=== PATIENT | male | born 1940 | race Two or more races ===

== ENCOUNTER 2025-07-30 08:01 | Emergency (ER) | payer OTHER ==
[~2025-07-30] VITALS: Ht 180.3 cm; Wt 66.2 kg
[~2025-07-30 08:01] MED LIST: AVAPRO150 MG PO; METFORMIN HCL1000 MG PO
[2025-07-30] MEDS ORDERED: JARDIANCE10 MG PO (08:19)
[2025-07-30] MEDS ORDERED: SYNTHROID88 MCG PO (08:20)
[2025-07-30] MEDS ORDERED: SYNTHROID75 MCG PO (08:20)
[2025-07-30] MEDS ORDERED: COZAAR50 MG PO (08:21)
[2025-07-30] MEDS ORDERED: NEOMYCIN/POLYMYXIN B/HYDROCORT 20 DR/ML BOTTLE OT STA (08:38)
[2025-07-30] MEDS ORDERED: KETOROLAC TROMETHAMINE 60 MG VIAL IM ONE ×2 (08:41→08:45)
[2025-07-30] MEDS ORDERED: ACETAMINOPHEN 500 MG GEL..CAP PO ONE ×2 (08:42→08:45)
[2025-07-30] MEDS ORDERED: CIPROFLOX-DEXA7.5 ML OT (08:43)
[2025-07-30] MEDS ORDERED: PEPCID AC20 MG PO (08:43)
[2025-07-30] MEDS ORDERED: AMOX1TAB5 PO (08:43)
== END 2025-07-30 09:04 | disposition home or self-care (01) ==
LOC: ER 08:01
DX: H66.90 Otitis media, unspecified, unspecified ear (principal); E11.9 Type 2 diabetes mellitus without complications; Z79.84 Long term (current) use of oral hypoglycemic drugs; I10 Essential (primary) hypertension; E03.8 Other specified hypothyroidism
CPT/HCPCS: 96372; 99282; J1885